=== PATIENT | male | born 1980 | race Caucasian/White ===

== ENCOUNTER 2016-11-08 05:58 | Observation (INO) | payer BC ==
--- NOTE | 2016-11-08 06:20 | EKG ---
[address] [address] Measurements Intervals [place] Rate: 86 P: 55 NV: 152 QRS: 45 QRSD: 107 T: 26 QT: 367 QTc: 410 Interpretive Statements SINUS RHYTHM No previous ECG available for comparison Electronically Signed On 11-12-16 09:57:30 MDT by Cj Lou MD [id number]
[2016-11-08] MEDS ORDERED: NORMAL SALINE 10 ML SYRINGE FLUSH IVP PRN ×2 (06:22→08:20)
[2016-11-08 06:29] LABS: BASOPHILS # (AUTO) 0.07 10*3/UL; BASOPHILS % (AUTO) 1.3 % (0-1); EOSINOPHILS # (AUTO) 0.12 10*3/UL; EOSINOPHILS % (AUTO) 2.2 % (0-8); HEMOGLOBIN 16.7 g/dL (14.0-18.0); MEAN CORPUSCULAR HEMOGLOBIN 31.7 PG (27-31); MEAN CORPUSCULAR HGB CONC 35.5 g/dL (33-37); MEAN CORPUSCULAR VOLUME 89.2 FL (80-90); MEAN PLATELET VOLUME 11.6 FL (7.4-12.2); MONOCYTES % (AUTO) 12.6 % (5-15); NEUTROPHILS # (AUTO) 1.86 10*3/UL; NEUTROPHILS % (AUTO) 33.4 % (50-80); RED BLOOD COUNT 5.27 10^6/uL (4.70-6.10)
[2016-11-08 06:33] LABS: PLATELET MORPHOLOGY COMMENT NORMAL MORPHOLOGY (NORM); RBC MORPHOLOGY COMMENT NORMAL MORPHOLOGY (NORM); WBC MORPHOLOGY COMMENT NORMAL MORPHOLOGY (NORM)
[2016-11-08 06:39] LABS: BLOOD UREA NITROGEN 15 mg/dL (7-22); BUN/CREATININE RATIO 16.66 (6-20); CALCIUM 9.1 mg/dL (8.7-10.7); EST GLOMERULAR FILTRATION > 60 (>60 ml/min/1.73m(2)); SERUM ALBUMIN 4.6 g/dL (3.5-4.8)
--- NOTE | 2016-11-08 06:47 | DI ---
HISTORY: Right-sided weakness. COMPARISON: None available. TECHNIQUE: Serial axial images were obtained from the skull base to the vertex. FINDINGS: There is left maxillary sinus disease. The brain parenchyma is unremarkable in appearance and without definite focal attenuation abnormality. Cerebral sulci have a normal appearance. Poste rior fossa structures are unremarkable. The ventricles appear normal. There is no evidence of mass effect, large vessel infarction or hemorrhage, or extra-axial collection. Remainder of the paranasal sinuses and mastoids air cells appear clear. Visualized orbits are normal. No osseous lesions seen . There is no displaced skull fracture demonstrated in the axial plane. IMPRESSION: 1. Left maxillary sinus disease. Otherwise, an unremarkable CT examination of the head.
[2016-11-08] MEDS ORDERED: ASPIRIN 81 MG (BABY) CHEWABLE TABLET PO ONE (07:01)
--- NOTE | 2016-11-08 07:27 | DI ---
HISTORY: Labored breathing. COMPARISON: None available. FINDINGS: The heart is within normal limits. The lung cedillo are essentially clear. IMPRESSION: 1. No acute cardiopulmonary abnormalities.
--- NOTE | 2016-11-08 07:29 | PDOC ---
Neuro Symptoms / Deficit HPI - General Chief Complaint: Neurological Complaints Stated Complaint: RIGHT SIDED NUMBNESS STARTED 20 MIN. Date Seen by Provider: 11/08/16 Time Seen by Provider: 06:00 Source: POSITIVE: Patient, Spouse Exam Limitations: POSITIVE: No limitations Nurse's Notes Reviewed & Considered: Yes - History of Present Illness Initial Comments: The patient is a 36-year-old male. 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 As he got out of bed he noticed that he had weakness to the right hand and the right side of his face and that he had slurred speech. He states he felt fine when he went to bed last night. No headaches. No chest pain. No cardiac palpitations. No GI or symptoms. No fevers or rashes or skin changes. He takes no medications except Lunesta as a sleep aid and multivitamins. No history of head trauma. 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 with right hemiplegia as above) Severity: Moderate Quality: REPORTS: Other (Patient denies any pain anywhere) Context: DENIES: Insect Bite, Tick Bite, Falling Injury, Head Injury, Other Character of Deficit(s): REPORTS: Right, RUE, New Weakness (Right upper extremity, especially the hand, and right side of face), Facial Associated Symptoms: DENIES: Fever, Chills, Sweating, Chest Pain, Neck Pain, Back Pain, Headache, Fainting, Seizure, Altered Mental Status, Disoriented, Confused, Agitated, Trouble Concentrating, Trouble Thinking, Decreased Responsiveness, Unresponsive, Other Usual Ability to Walk/Stand: REPORTS: Walks w/o Assistance Usual Cognition: REPORTS: Alert & Oriented x3 Similar Symptoms Previously: No Recently seen/treated/hospitalized: No Any Prior Injuries Related to Current Complaint?: No - Patient Home Medications Home Medications: Home Medications Eszopiclone [Lunesta] 3 mg PO DAILY tab 06/20/16 Multivitamin [Multivitamins] 1 each PO DAILY 11/08/16 - Patient Allergies Allergies/Adverse Reactions: Allergies Allergy/AdvReac Type Severity Reaction Status Date / Time No Known Allergies Allergy Unverified 06/20/16 17:22 Past Medical History - heen HEENT History: Denies History Cardiovascular History: Hypertension Respiratory History: Denies History Gastrointestinal History: Denies History Genitourinary History: Denies History Endocrine History: Denies History Musculoskeletal History: Denies History Neurological History: Denies History Blood Disorders: Denies History Psychiatric History: Denies History History of Sexually Transmitted Diseases: No Male Reproductive History: Denies History Cancer History: Denies History In Past Year Been Physically Harmed or Verbally Threatened: No History of MDRO: No Tobacco Use: Never Smoker Alcohol Use: Other How much alcohol do you normally drink a day?: EVERY OTHER DAY Substance Use Type: Other (please comment) Previous Surgical History: Yes Type / Date of Surgery: TONSILECTOMY Significant Family History: No pertinent family hx Past Medical History Reviewed: Reviewed - No Changes ROS - Limitations ROS Limitations: No Limitations Constitution: REPORTS: Denies Symptoms Cardiovascular: REPORTS: Denies Cardiac Symptoms Respiratory: REPORTS: Denies Resp Symptoms Neurological: REPORTS: Numbness (Right side of face and hand), Facial Asymmetry (Right), Weakness (Right upper extremity, especially with hand grasp) Gastrointestinal: REPORTS: Denies GI Symptoms Endocrine: REPORTS: Denies Symptoms Musculoskeletal: REPORTS: Denies MS Symptoms Genitourinary: REPORTS: Denies Symptoms Eyes: REPORTS: Denies Symptoms ENT: REPORTS: Denies Symptoms Skin: REPORTS: Denies Skin Symptoms Lympathic: REPORTS: Denies Lympathic Symptoms Immunologic: POSITIVE: Denies Symptoms Psychiatric: POSITIVE: Denies Psych Symptoms Neuro Symptoms / Deficit Exam - General Appearance General Appearance: POSITIVE: No Acute Distress, Alert - HEENT HEENT: POSITIVE: Head Inspection Nml, Eyes Inspection Nml, Ears Inspection Nml, Nose Inspection Nml, Oral/Dental Inspect. Nml, Pharynx Inspect. Nml, PERRL, EOMI - Pupil Size Pupil Size: 3 mm: Bilateral (PERRLA) - Neuro / Psych Higher Functions: POSITIVE: Oriented to Person, Oriented to Place, Oriented to Time. NEGATIVE: Normal Speech (Speech slurred), Normal Cognition, Appropriate Mood, Appropriate Affect, Disoriented to Person, Disoriented to Place, Disoriented to Time, Speech Abnormalities, Cognition Abnormalities, Depressed Mood, Depressed Affect, Abnml Response to Command, No Response to Command, Eyes Open to Command, Slow Response to Command, Inapp Response to Command, Expressive Aphasia, Receptive Aphasia, Abnml Response to Pain, Withdraws to Pain , Flexor to Pain, Extensor to Pain, No Response to Pain, Dysarthria, Other Cranial Nerves: POSITIVE: Dysarthria, Numbness (Right side of face), Facial Palsy, Forehead Spared. NEGATIVE: Tongue Deviation (R), Tongue Deviation (L) Cerebellar: POSITIVE: Normal As Tested Peripheral Exam: POSITIVE: Weakness (Right upper extremity, especially hand grasp), Pronator Drift RUE (Mild) - Neck Neck: POSITIVE: Supple, Non-Tender, No Carotid Bruit - Respiratory Respiratory: POSITIVE: No Respiratory Distress, Breath Sounds Normal - Cardiovascular Cardiovascular: POSITIVE: Regular Rate & Rhythm, Heart Sounds Normal Peripheral Pulses: Radial (R): 2+, Radial (L): 2+ - Abdomen Abdomen: Soft: (All Quadrants), Normal Bowel Sounds: (All Quadrants), Denies Tenderness: (All Quadrants), No Splenomegaly: (All Quadrants), No Hepatomegaly: (All Quadrants), No Guarding: (All Quadrants), No Rebound: (All Quadrants), No Palpable Pulse: (All Quadrants), No Palpabale Mass: (All Quadrants), No Distention: (All Quadrants), No Rigidity: (All Quadrants) - Skin Skin: POSITIVE: Intact, Normal For Race, Warm, Dry, No Rash - Extremities Extremity: Non-Tender: (All Extremities), Normal ROM: (All Extremities), Normal Inspection: (All Extremities) Images - Head Head: 1 - Right facial weakness with frontalis sparing - Complete Complete: 1 - Right facial weakness withdrawn talus sparing 2 - Weakness right upper extremity, especially distally; hand grasp markedly diminished Neuro Symptom/Deficit Progress - Results Reviewed by me Xrays/CTs/US Reviewed by me: Yes Discussed with Radiologist: Yes Radiology Findings: CT scan head read by radiologist as showing no hemorrhage or other acute abnormalities Lab Results Reviewed: Yes Lab Results:: Laboratory Results 06/01/17 Range/Units 06:03 WBC 5.55 (4.8-10.8) 10^3/uL RBC 5.27 (4.70-6.10) 10^6/uL Hgb 16.7 (14.0-18.0) g/dL Hct 47.0 (42.0-52.0) % MCV 89.2 (80-90) FL MCH 31.7 H (27-31) PG MCHC 35.5 (33-37) g/dL RDW Std Deviation 42.6 (39-50) fL RDW Coeff of Terrence 13.1 (11.5-14.5) % Plt Count 297 (140-350) 10*3/uL MPV 11.6 (7.4-12.2) FL Immature Gran % (Auto) 0 (0-5) % Neut % (Auto) 33.4 L (50-80) % Lymph % (Auto) 50.5 H (10-50) % [place] % (Auto) 12.6 (5-15) % Eos % (Auto) 2.2 (0-8) % Baso % (Auto) 1.3 H (0-1) % Immature Gran # (Auto) 0 10*3/UL Neut # (Auto) 1.86 10*3/UL Lymph # (Auto) 2.80 10*3/uL [place] # (Auto) 0.70 (0.3-0.8) 10*3/UL Eos # (Auto) 0.12 10*3/UL Baso # (Auto) 0.07 10*3/UL WBC Morphology Comment Normal morphology (NORM) Plt Morphology Comment Normal morphology (NORM) RBC Morph Comment Normal morphology (NORM) PT 10.0 (9.7-11.4) secs INR 0.97 (0.00-5.90) N/A APTT 28.0 (22.6-31.3) SECS Sodium 143 (135-145) meq/L Potassium 3.4 L (3.8-5.2) meq/L Chloride 105 (98-112) meq/L Carbon Dioxide 24 (23-33) meq/L Anion Gap 14 (5-20) BUN 15 (7-22) mg/dL Creatinine 0.9 (0.70-1.50) mg/dL Estimated GFR > 60 (>60 ml/min/1.73m(2)) BUN/Creatinine Ratio 16.66 (6-20) Glucose 92 (78-110) mg/dL Calculated Osmolality 296.0 H (267-292) mOsm/kg Calcium 9.1 (8.7-10.7) mg/dL Total Bilirubin 0.5 (0.3-1.2) mg/dL AST 48 (21-57) IU/L ALT 51 (21-72) IU/L Alkaline Phosphatase 73 (38-126) IU/L Total Protein 8.1 H (6.1-8.0) g/dL Albumin 4.6 (3.5-4.8) g/dL Globulin 3.5 (2.50-4.10) g/dL Albumin/Globulin Ratio 1.30 (1.3-2.0) mg/g Serum Alcohol 44 H (0-10) mg/dL EKG Interpreted/Reviewed By Me:: Yes (normal sinus rhythm; normal) EKG Interpretation:: POSITIVE: Normal Sinus Rhythm, Normal Rate, Normal Intervals, Normal [place], Normal QRS, Normal ST/T - Patient's Progress Pain Medication Addressed: POSITIVE: Not Applicable School/Work Release Addressed: POSITIVE: Not Applicable Re-Examine Time:: 07:00 Re-Examine Comment: Weakness right side of face and right upper extremity markedly improved. Speech much clearer. Still some residual weakness on hand grasp, right and some right facial weakness with frontalis. Patient given 4 baby aspirin, chewed, after normal CT scan results received. Status: POSITIVE: Improved Antibiotics Given: No CVA/Syncope Quality Measure Initiative: POSITIVE: EKG. NEGATIVE: t-PA Considered - Consult Consult (If Yes, Name of Consulting MD & Time Called): Yes (Dr. Clay, hospitalist,[id number]) Consulting MD will see pt:: POSITIVE: [facility] [place] Admit Counseled: POSITIVE: Patient, Family, RE: Lab Results, RE: Radiology Results, RE : DX, RE: Need for F/U Patient Care Time - Estimated PCT Patient Care Time (In Minutes): 50 Vital Signs - Recent Vital Signs Vital Signs: Vital Signs (Last 8 hours) Temp Pulse Resp BP Pulse Ox 11/08/16 06:18 98.1 F 94 22 150/115 97 - VS Reviewed Vital Signs Reviewed: Yes Discharge Clinical Impression: Transient ischemic attack, Cerebrovascular accident Discharge Disposition: Admit to Inpatient Condition: Poor Date Decision to Admit to Inpatient: 11/08/16 Time Decision to Admit to Inpatient: 07:00
[2016-11-08 08:03] VITALS: RESP 20; TEMP 98.7
[2016-11-08] MEDS ORDERED: ONDANSETRON 4 MG/2 ML VIAL IVP PRN (08:20)
[2016-11-08] MEDS ORDERED: LIDOCAINE W/ SODIUM BICARB 0.5 ML SYR SUBD PRN (08:20)
--- NOTE | 2016-11-08 08:27 | PDOC ---
History and Physical - History of Present Illness Date and Time of Service: 11/08/2016 8:30 AM Chief Complaint: Right arm weakness with slurred speech today History of Present Illness: This is a 36 years old male with medical history significant for history of prehypertension on no medication who went to bed last night and woke up this morning to go to the bathroom and noticed that there is weakness in the right arm and had slurred speech with no weakness in the leg. Because of that they brought him to the hospital. There was no chest pain, there is no palpitation no nausea. He is otherwise healthy. In the ER when he came in was noted that he had weakness in the right arm pronator drift positive per my discussion with the ER physician and had slurred speech. They gave him aspirin had a CT scan of the head which was negative. And there was improvement with his speech and with subtle weakness in the right hand. And he was admitted. Currently he said he is much better compared to when he came in. His speech is more clear and the weakness is subtle. Past Medical History Medical History: History of pre-hypertension on no medications Surgical History: Tonsillectomy Pertinent Family History: Nothing of significance Past Social History: He used to smoke quit few years ago, he smoked about 10 years, half a pack a day. No drugs. Occasionally drinks. No drugs Tobacco Use: Former Smoker Substance Use Type: None Alcohol Use: Occasionally Medication / Allergies Home Medications: Home Medications Medication Instructions Recorded Confirmed Type Eszopiclone [Lunesta] 3 mg PO DAILY tab 06/20/16 History Multivitamin [Multivitamins] 1 each PO DAILY 11/08/16 11/08/16 History Allergies/Adverse Reactions: Allergies Allergy/AdvReac Type Severity Reaction Status Date / Time No Known Allergies Allergy Unverified 06/20/16 17:22 Review of Systems - Review of Systems All Systems: Reviewed & No Additional Complaints Except as Stated Exam - Vitals Vital Signs: Vital Signs Temperature 98.7 F Temperature Source Temporal Artery Scan Pulse Rate 94 Respiratory Rate 20 Blood Pressure 132/107 Pulse Ox 93 Height 6 ft Weight 246 lb 3.2 oz - General General Appearance: POSITIVE: No Acute Distress, Obese - Head Head Exam: POSITIVE: Normal Inspection, Atraumatic - Eye Eye Exam: POSITIVE: Normal Appearance - ENT ENT Exam: POSITIVE: Normal Exam - Neck Neck Exam: POSITIVE: Normal Inspection - Respiratory Respiratory Exam: POSITIVE: Clear to Auscultation - Bilaterally - Cardiovascular Cardiovascular Exam: POSITIVE: RRR - GI/Abdominal GI/Abdominal Exam: POSITIVE: Normal Bowel Sounds, Non Tender, Non Distended, Soft - Rectal Rectal Exam: POSITIVE: Deferred - External Exam: POSITIVE: Deferred - Extremities Extremities Exam: POSITIVE: Normal Inspection - Back Back Exam: POSITIVE: Normal Inspection - Neurological Neurological Exam: POSITIVE: Alert, Oriented x 3 Additional Neurological Exam Details: There is subtle weakness I would say on the right face with subtle right facial droop. Otherwise no other cranial nerve abnormalities. Sensation seems to be intact on the face. There is subtle weakness in the hand bobbin drier. Pronator drift is negative. Reflexes symmetrical. Babinski is negative. No leg weakness. Subtle slight slurred speech - Psychiatric Psychiatric Exam: POSITIVE: Normal Affect - Integumentary Integumentary Exam: POSITIVE: Normal Color Results - Labs CBC and BMP: 11/08/16 06:03 11/08/16 06:03 - EKG Data -: EKG Interpreted by Me Rate: Normal - Imaging Status: Report Reviewed by Me (CT of the head was negative, chest x-ray was negative) Assessment and Plan - Patient Problems (1) Transient ischemic attack Status: Acute Comment: He is young for vascular events, his risk factor though is pre- hypertension and the obesity. We'll do an MRI of the brain and MRA of brain with MRA of the neck. To look to see if there is dissection. We'll do an echocardiogram to look for cardio- embolic source. Will order the thrombophilia profile. Will order anticardiolipin antibodies. Ordered lipids for tomorrow. If the MRI do show evidence of stroke will speak with neurologist. We'll watch his blood pressure overnight. will Put him on telemetry and aspirin.
[2016-11-08] MEDS ORDERED: ASPIRIN 325 MG EC TABLET PO SCH (09:00)
[2016-11-08] MEDS ORDERED: POTASSIUM CHLORIDE 20 MEQ TAB PO SCH (09:00)
--- NOTE | 2016-11-08 09:36 | DI ---
HISTORY: Right arm weakness. Slurred speech with right-sided facial droop. COMPARISON: None available. TECHNIQUE: Multiplanar MR images were obtained through the brain without contrast. FINDINGS: Examination demonstrates normal, symmetric ventricles and other CSF containing spaces. Th ere is no mass, hemorrhage or midline shift. There is a focus of abnormally restricted diffusion involving the left post central gyrus. This does not yet demonstrate increased FLAIR or T2 signal. There are a few scattered areas of increased FLAIR signal within the frontal subcortical white matter , bilaterally. There is a mucus retention cyst noted within the left maxillary sinus. MRA images demonstrate a normal-appearing elem of [place]. The middle cerebral arteries and anterior cerebral arteries are normal. The anterior communicating a rtery and posterior communicating arteries are also normal. Delayed images demonstrate a normal venous structures. IMPRESSION: 1. Focus of abnormally restricted diffusion within the left post central gyrus consistent with acute ischemia. 2. Normal MRA brain.
--- NOTE | 2016-11-08 09:36 | DI ---
HISTORY: Right arm weakness. Slurred speech with right-sided facial droop. COMPARISON: None available. TECHNIQUE: Multiplanar MR images were obtained through the brain without contrast. FINDINGS: Examination demonstrates normal, symmetric ventricles and other CSF containing spaces. Th ere is no mass, hemorrhage or midline shift. There is a focus of abnormally restricted diffusion involving the left post central gyrus. This does not yet demonstrate increased FLAIR or T2 signal. There are a few scattered areas of increased FLAIR signal within the frontal subcortical white matter , bilaterally. There is a mucus retention cyst noted within the left maxillary sinus. MRA images demonstrate a normal-appearing [place]. The middle cerebral arteries and anterior cerebral arteries are normal. The anterior communicating a rtery and posterior communicating arteries are also normal. Delayed images demonstrate a normal venous structures. IMPRESSION: 1. Focus of abnormally restricted diffusion within the left post central gyrus consistent with acute ischemia. 2. Normal MRA brain.
--- NOTE | 2016-11-08 09:59 | DI ---
HISTORY: Right arm weakness. Slurred speech with right-sided facial droop. COMPARISON: None available. TECHNIQUE: Multiplanar MR images were obtained through the neck; 3-D [id number] protocol. FINDINGS: Examination demonstrates normal carotid systems, bilaterally. There is no filling defect. The carotid bulbs appear widely patent. The aortic arch is normal. The vertebral arteries are als o normal. Visualized portions of the [place] are unremarkable. These are not well evaluated on this e xamination. IMPRESSION: 1. Normal MRA neck.
--- NOTE | 2016-11-08 11:10 | DCSUMMARY ---
Hospitalization Summary Admit Date: 11/08/16 Discharge Date: 11/08/16 Hospital Course: Transfer diagnoses 1. Acute cerebrovascular accident involving the left post central gyrus 2. History of pre-hypertension 3. Obesity 4. Mild hypokalemia Hospital course This is a 36 years old male with medical history significant for history of pre- hypertension on no medication who went to the to bed last night and woke up this morning to go to the bathroom and noticed that he has weakness of the right arm and had slurred speech there was no weakness in the right leg. Because of that they brought him to the hospital. There was no chest pain, there was no palpitation no nausea. Otherwise he is healthy. In the ER when he came in it was noted that he had weakness in the right arm and pronator drift was positive. He also had slurred speech. They gave him aspirin and had a CT of the head which was negative. There was improvement in his speech and in the weakness in right arm and he was admitted. When I talk to him he felt much better compared to when he came in. There was subtle weakness in his hand and minimal slurred speech. Hois examination was Apart from obesity and the subtle slight right facial droop and subtle weakness in his hand turkey boner with decreased sensation in the right arm was not remarkable. We did an MRI of the head which showed a focus of abnormally restricted diffusion within the left postcentral gyrus consistent with acute ischemia. Normal MRA brain and normal MRA neck. I did speak [place] le[place] [facility] [place] she suggested transfer to complete the workup for this young adults with CVA. We did send thrombophilia profile and anticardiolipin antibodies. Did speak with the patient about transfer and he accepted transfer. Laboratory Results 11/08/16 11/08/16 Range/Units 06:03 06:30 WBC 5.55 (4.8-10.8) 10^3/uL RBC 5.27 (4.70-6.10) 10^6/uL Hgb 16.7 (14.0-18.0) g/dL Hct 47.0 (42.0-52.0) % MCV 89.2 (80-90) FL MCH 31.7 H (27-31) PG MCHC 35.5 (33-37) g/dL RDW Std Deviation 42.6 (39-50) fL RDW Coeff of Terrence 13.1 (11.5-14.5) % Plt Count 297 (140-350) 10*3/uL MPV 11.6 (7.4-12.2) FL Immature Gran % (Auto) 0 (0-5) % Neut % (Auto) 33.4 L (50-80) % Lymph % (Auto) 50.5 H (10-50) % [place] % (Auto) 12.6 (5-15) % Eos % (Auto) 2.2 (0-8) % Baso % (Auto) 1.3 H (0-1) % Immature Gran # (Auto) 0 10*3/UL Neut # (Auto) 1.86 10*3/UL Lymph # (Auto) 2.80 10*3/uL [place] # (Auto) 0.70 (0.3-0.8) 10*3/UL Eos # (Auto) 0.12 10*3/UL Baso # (Auto) 0.07 10*3/UL WBC Morphology Comment Normal morphology (NORM) Plt Morphology Comment Normal morphology (NORM) RBC Morph Comment Normal morphology (NORM) ESR 2 (0-15) MM/HR PT 10.0 (9.7-11.4) secs INR 0.97 (0.00-5.90) N/A APTT 28.0 (22.6-31.3) SECS Sodium 143 (135-145) meq/L Potassium 3.4 L (3.8-5.2) meq/L Chloride 105 (98-112) meq/L Carbon Dioxide 24 (23-33) meq/L Anion Gap 14 (5-20) BUN 15 (7-22) mg/dL Creatinine 0.9 (0.70-1.50) mg/dL Estimated GFR > 60 (>60 ml/min/1.73m(2)) BUN/Creatinine Ratio 16.66 (6-20) Glucose 92 (78-110) mg/dL Calculated Osmolality 296.0 H (267-292) mOsm/kg Calcium 9.1 (8.7-10.7) mg/dL Total Bilirubin 0.5 (0.3-1.2) mg/dL AST 48 (21-57) IU/L ALT 51 (21-72) IU/L Alkaline Phosphatase 73 (38-126) IU/L C-Reactive Protein < 0.5 (0.0-0.9) mg/dL Total Protein 8.1 H (6.1-8.0) g/dL Albumin 4.6 (3.5-4.8) g/dL Globulin 3.5 (2.50-4.10) g/dL Albumin/Globulin Ratio 1.30 (1.3-2.0) mg/g Serum Alcohol 44 H (0-10) mg/dL Discharge instruction Diet regular Activity as started Medications Home Medications Medication Instructions Recorded Confirmed Type Eszopiclone [Lunesta] 3 mg PO DAILY tab 06/20/16 History Multivitamin [Multivitamins] 1 each PO DAILY 11/08/16 11/08/16 History Follow-up [place] [facility] [place] Condition at transfer was stable for transfer Exam - Vitals Vital Signs: Vital Signs Temperature 98.7 F Temperature Source Temporal Artery Scan Pulse Rate 78 Respiratory Rate 20 Blood Pressure 132/107 Pulse Ox 93 Height 6 ft Weight 246 lb 3.2 oz Patient Problems - Patient Problem List (1) Transient ischemic attack Status: Acute
== END 2016-11-08 11:20 | disposition short-term general hospital (02) ==
LOC: ER 05:58 → MED/SURG 07:34
PROVIDERS: ADMIT Internal Medicine; ATTEND Internal Medicine
DX: I63.9 Cerebral infarction, unspecified (principal); E66.9 Obesity, unspecified; E87.6 Hypokalemia
CPT/HCPCS: 70450; 70544; 70547; 70551; 71020; 80053; 80320; 85025; 85610; 85652; 85730; 86038; 86140; 86147; 93005; 93010; 93306; 99284

== ENCOUNTER → 2016-12-26 | Outpatient (CLI) | payer BC ==
--- NOTE | 2017-01-01 09:12 | HOLTER ---
[facility] Interpretive Statements No Diary returned. Forty eight hour holter done for recent stroke with history of septal defect. No symptoms recorded. There were [id number] beats with [id number] normal beats. There were 3 PACs, 1 singlet and 1 pair and 7 VPCs, all singlets. There was no sustained ectopic tachycardia or significant pauses and no atrial fibrillation. The average sinus rate was 83 with the lowest rate of 54 and maximum sinus rate of 125 at 9 PM. It is of note that patient exibited quang frequent sinus tachycardia with rates above 100, however, no activity levels were recorded. No diagnostic ST-T wave changes were seen. IMP: Essentially normal holter study with rare isolated atrial and ventricular premature beats. Frequent sinus tachycardia was seen up to 125 but no activity diary was kept and this finding may be normal for level of activity. Electronically Signed On 01-01-17 09:56:19 MDT by Mitchell Veronica [id number]
== END ==
LOC: RT 10:38
PROVIDERS: ATTEND Obstetrics & Gynecology Gynecology
DX: Q21.1 Atrial septal defect (principal)
CPT/HCPCS: 93225; 93226; 93227